=== PATIENT | male | born 1995 | race Caucasian/White ===

== ENCOUNTER 2016-12-14 12:47 | Emergency (ER) | payer BC ==
[~2016-12-14] VITALS: Ht 177.8 cm; Wt 60.0 kg
[2016-12-14 12:48] VITALS: BP 139/76; PULSE 109; RESP 15; TEMP 98.2; O2SAT 98
[2016-12-14] MEDS ORDERED: IBUPROFEN 800 MG TAB PO ONE (14:00)
[2016-12-14] MEDS ORDERED: AMOXICILLIN 875 MG TAB PO ONE (14:00)
[2016-12-14] MEDS ORDERED: DICL75TA PO (14:24)
[2016-12-14] MEDS ORDERED: MAGICADU2 SWISH-SWAL (14:24)
[2016-12-14] MEDS ORDERED: AMOX875T PO (14:24)
--- NOTE | 2016-12-14 14:27 | PD ---
HPI Chief Complaint: Facial Pain or Swelling Time Seen by Provider: 14:24 Travel History International Travel<30 days: No Contact w/Intl Traveler<30days: No Traveled to known affect area: No History of Present Illness HPI 21-year-old male that presents to the ED for evaluation of facial pain and swelling. Patient has had this for the past 3 days. No injury. He does state that he smokes. He states that he has pain on one of his incisors. Per patient he has not seen anybody for this. Not taking anything for this. Cold makes it worse. No chest pain or shortness of breath. No other medical issues. Per patient the pain is 6 out of 10 and gets worse with eating as well as with touch. Patient has swelling mainly to the left side of the face. [facility] Past Medical History Medical History: Denies Significant Hx Past Surgical History Surgical History: No Previous Surgery Social History Alcohol Use: Yes Tobacco Use: Yes Substance Use: No Allergies-Medications (Allergen,Severity, Reaction): Coded Allergies: No Known Allergies (Unverified , 12/14/16) Reported Meds & Prescriptions Reported Meds & Active Scripts Active Amoxicillin 875 Mg Tab 875 Mg PO BID [address] (Diclofenac Sodium) 75 Mg Tabdr 75 Mg PO BID PRN Magic Mouthwash Adult Liq (Multi-Ingredient Mouthwash/Gargle) 120 Ml Susp 5 Ml SWISH-SWAL ACHS Each 5 mL contains: Nystatin 200,000 units, Diphenhydramine 4.25 mg, Viscous Lidocaine 10 mg, Cadet syrup 0.8 mL Review of Systems Except as stated in HPI: all other systems reviewed are Neg Physical Exam Narrative GENERAL: SKIN: Warm and dry. HEAD: Atraumatic. Normocephalic. EYES: Pupils equal and round. No scleral icterus. No injection or drainage. ENT: No nasal bleeding or discharge. Mucous membranes pink and moist. Tongue is midline. No uvula deviation. Dental: Patient has bad dentition throughout the mouth. Multiple cavities noted. Patient does have reproducible pain with touch in the left upper incisor. Patient has soft tissue swelling in this area but no sign of abscess or deformity. Tender to touch in this area. Neurovascular intact. No foreign body noted. NECK: Trachea midline. No JVD. CARDIOVASCULAR: Regular rate and rhythm. No murmurs, S3, S4. RESPIRATORY: No accessory muscle use. Clear to auscultation. Breath sounds equal bilaterally. GASTROINTESTINAL: Abdomen soft, non-tender, nondistended. Hepatic and splenic margins not palpable. MUSCULOSKELETAL: Extremities without clubbing, cyanosis, or edema. No obvious deformities. NEUROLOGICAL: Awake and alert. No obvious cranial nerve deficits. Motor grossly within normal limits. Five out of 5 muscle strength in the arms and legs. Normal speech. PSYCHIATRIC: Appropriate mood and affect; insight and judgment normal. Data Data Last Documented VS Vital Signs Date Time Temp Pulse Resp B/P Pulse Ox O2 Delivery O2 Flow Rate FiO2 12/14/16 14:01 100 20 12/14/16 12:48 98.2 139/76 98 Orders Amoxicillin (Trimox) (12/14/16 14:00) Ibuprofen (Motrin) (12/14/16 14:00) [facility] Medical Decision Making Medical Screen Exam Complete: Yes Emergency Medical Condition: Yes Medical Record Reviewed: Yes Differential Diagnosis Dental abscess versus dental infection versus gingivitis Narrative Course 21-year-old male that presents to the ED for evaluation of facial pain and swelling. Patient was properly examined and was found to have signs and symptoms very consistent what appears to be dental infection. Also gingivitis noted. Patient is a smoker. Patient was told that she should consider quitting smoking. Patient was also treated here with amoxicillin and ibuprofen. Patient will be sent home with prescriptions for diclofenac sodium, amoxicillin, Magic mouthwash to help with his pain. He was told that he needs to follow with dentist this week. See ED for any worsening symptoms. Ice or warm compresses as needed. Diagnosis Primary Impression: Dental infection Additional Impression: Gingivitis Patient Instructions: General Instructions Additional Instructions: Take medication as prescribed. Follow with PCP. See ED if worsening symptoms. Follow with dentist. Ice or warm compresses as needed. Med/Other Pt SpecificInfo: Prescription(s) given Scripts Amoxicillin 875 Mg [id number] Mg PO BID 10 Days Prov:Lenin Patino MD 12/14/[address] 75 Mg Tabdr75 Mg PO BID PRN (PAIN SCALE 1 TO 10) #20 TAB Prov:Lenin Patino MD 12/14/16 Qthmyuxa-Pvjtwiirtosxmrh-Mjwbueuis Liq (Magic Mouthwash Adult Liq)120 Ml Susp5 Ml SWISH-SWAL ACHS #120 ML Each 5 mL contains: Nystatin 200,000 units, Diphenhydramine 4.25 mg, Viscous Lidocaine 10 mg, Cadet syrup 0.8 mL Prov:Lenin Patino MD 12/14/16 Disposition: 01 DISCHARGE HOME Condition: Stable Agusto Jay Dec 14, 2016 14:27
[2016-12-14 15:41] VITALS: BP 124/78
[2016-12-15] MEDS ORDERED: HYDR-3533 PO (23:43)
[2016-12-15] MEDS ORDERED: CLIN150 PO (23:43)
== END 2016-12-14 15:42 | disposition home or self-care (01) ==
LOC: NEPC 12:47
DX: K04.7 Periapical abscess without sinus (principal); K05.10 Chronic gingivitis, plaque induced; Z72.0 Tobacco use
CPT/HCPCS: 99284

== ENCOUNTER 2016-12-15 22:43 | Emergency (ER) | payer BC ==
[~2016-12-15] VITALS: Ht 177.8 cm; Wt 60.0 kg
[2016-12-15 22:43] VITALS: BP 150/74; PULSE 93; RESP 16; TEMP 100; O2SAT 97
[~2016-12-15 22:43] MED LIST: AMOX875T PO; DICL75TA PO; MAGICADU2 SWISH-SWAL
[2016-12-15] MEDS ORDERED: HYDR-3533 PO (23:43)
[2016-12-15] MEDS ORDERED: CLIN150 PO (23:43)
[2016-12-15] MEDS ORDERED: IBUPROFEN 600 MG TAB PO ONE (23:45)
[2016-12-15] MEDS ORDERED: ACETAMINOPHEN/HYDROcodone 325 MG/5 MG TAB PO ONE (23:45)
[2016-12-15] MEDS ORDERED: CLINDAMYCIN INJ 900 MG in SODIUM CHLORIDE 0.9% INJ 100 ML IV ONE (23:45)
--- NOTE | 2016-12-15 23:50 | PD ---
HPI Chief Complaint: Oral / Dental Pain or Problem Time Seen by Provider: 23:45 Travel History International Travel<30 days: No Contact w/Intl Traveler<30days: No Traveled to known affect area: No History of Present Illness HPI 21-year-old white male returns to the ER with complaints of worsening dental pain and facial swelling after being seen in the ER 2 days ago. He states that he was given a prescription for amoxicillin and diclofenac. Since then the patient states that a small opening has developed above his tooth is now draining pus. He states that the pain is somewhat worse. He also notes having a subjective fever today. He denies any ear pain or sore throat. No difficulty swallowing. States the pain is moderate but can be severe at times. He denies any nausea vomiting. No bowel pain or urinary symptoms PFSH Past Medical History Narrative Medical Denies diabetes, hypertension, liver disease or HIV. Medical History: Denies Significant Hx Tetanus Vaccination: < 5 Years Past Surgical History Surgical History: No Previous Surgery Social History Alcohol Use: Yes Tobacco Use: Yes Substance Use: No Allergies-Medications (Allergen,Severity, Reaction): Coded Allergies: No Known Allergies (Unverified , 12/15/16) Reported Meds & Prescriptions Reported Meds & Active Scripts Active Lortab (Hydrocodone-Acetaminophen) 5-325 Mg Tab 1 Tab PO Q4H PRN Cleocin (Clindamycin HCl) 150 Mg Cap 300 Mg PO Q6H Amoxicillin 875 Mg Tab 875 Mg PO BID [address] (Diclofenac Sodium) 75 Mg Tabdr 75 Mg PO BID PRN Magic Mouthwash Adult Liq (Multi-Ingredient Mouthwash/Gargle) 120 Ml Susp 5 Ml SWISH-SWAL ACHS Each 5 mL contains: Nystatin 200,000 units, Diphenhydramine 4.25 mg, Viscous Lidocaine 10 mg, Cadet syrup 0.8 mL Review of Systems Except as stated in HPI: all other systems reviewed are Neg General / Constitutional: Positive: Fever, No: Chills Eyes: No: Blurred Vision, Pain HENT: Positive: Gingival Bleeding, Dental Difficulties, No: Headaches, Ear Discharge, Earache Cardiovascular: No: Chest Pain or Discomfort, Palpitations Respiratory: No: Cough, Shortness of Breath Gastrointestinal: No: Nausea, Vomiting Genitourinary: No: Frequency, Dysuria Physical Exam Narrative GENERAL: Well-developed, well-nourished in no acute distress. Nontoxic appearing. HEAD: Patient has swelling of the left upper maxilla. EYES: Pupils equal round and reactive. Extraocular motions intact. No scleral icterus. No injection or drainage. The patient has an open draining abscess to tooth #9. There is gingival distention. ENT: TMs clear without erythema. The external auditory canals clear. Nose: clear . Posterior pharynx is pink and moist. No tonsillar edema or exudate. Uvula midline. Airway patent. NECK: Trachea midline.Supple, nontender, moves head freely. No central bony tenderness or spasm. CARDIOVASCULAR: Regular rate and rhythm without murmurs, gallops, or rubs. RESPIRATORY: Clear to auscultation. Breath sounds equal bilaterally. No wheezes , rales, or rhonchi. GASTROINTESTINAL: Abdomen soft, non-tender, nondistended. No hepato-splenomegaly , or palpable masses. No guarding. EXTREMITIES: No clubbing, cyanosis, or edema. No joint tenderness, effusion, or edema noted. BACK: Nontender without deformity or crepitance. No flank tenderness. Data Data Last Documented VS Vital Signs Date Time Temp Pulse Resp B/P Pulse Ox O2 Delivery O2 Flow Rate FiO2 12/15/16 22:43 100.0 93 16 150/74 97 Room Air Orders Iv Access Insert/Monitor (12/15/16 23:41) Clindamycin Inj (Cleocin Inj) (12/15/16 23:45) Acetamin-Hydrocod 325-5 Mg ([place] 5-325 (12/15/16 23:45) Ibuprofen (Motrin) (12/15/16 23:45) MDM Medical Decision Making Medical Screen Exam Complete: Yes Emergency Medical Condition: Yes Medical Record Reviewed: Yes Differential Diagnosis MDM: Moderate Differential diagnoses: Dental abscess, dental caries, osteitis, cellulitis Narrative Course Patient's abscess is anesthetized and incision and drainage has been performed. IV access is obtained. Patient's given clindamycin 900 mg IV. Lortab 5 mg by mouth and Motrin 600 mg by mouth. This is dental abscess with facial cellulitis Procedures Procedure Narrative Incision and drainage dental abscess: Tooth #9 has an obvious dental abscess. The patient's gingiva is anesthetized with 1% lidocaine. 11 blade scalpel was used to make a stab incision at the base of tooth in the area of the gingival distention. 3 cc of purulent pus and blood is expressed. Patient tolerates procedure well. Diagnosis Primary Impression: dental abscess with facial cellulitis Patient Instructions: Narcotic given in the ED, General Instructions Additional Instructions: Rest. [place] gargles. [place] oil on cotton balls. Continued to take the diclofenac and use the Magic mouthwash. Stop amoxicillin. Start clindamycin and Lortab for severe pain. follow-up with a dentist as soon as possible. And return to the ER if any problems. Med/Other Pt SpecificInfo: Prescription(s) given Scripts Hydrocodone-Acetaminophen (Lortab)5-325 Mg Tab1 Tab PO Q4H PRN (PAIN) #12 TAB Prov:Dharmesh Salinas MD 12/15/16 Clindamycin (Cleocin)150 Mg [id number] Mg PO Q6H #80 CAP Prov:Dharmesh Salinas MD 12/15/16 Disposition: 01 DISCHARGE HOME Condition: Stable Patrick Myrick Dec 15, 2016 23:50
== END 2016-12-16 00:56 | disposition home or self-care (01) ==
LOC: NEPK 22:43
DX: K04.7 Periapical abscess without sinus (principal); L03.211 Cellulitis of face
CPT/HCPCS: 41800; 96365